=== PATIENT | female | born 1945 | race Caucasian/White ===

== ENCOUNTER 2020-06-05 11:30 | Inpatient (IN) | payer MEDICARE, OTHER ==
[~2020-06-05] VITALS: Ht 157.5 cm; Wt 67.1 kg
[2020-06-05] MEDS ORDERED: DEXTROSE 50%-WATER 25 GM/50 ML SYRINGE IVP PRN (14:00)
[2020-06-05 15:30] VITALS: BP 151/47
[2020-06-05] MEDS: ACETAMINOPHEN 325 MG TABLET PO PRN (15:46)
[2020-06-05] MEDS: LevETIRAcetam 500 MG TABLET PO SCH (15:47)
[2020-06-05] MEDS: INSULIN LISPRO 100 UNITS/ML SQ SCH (17:53)
[2020-06-05] MEDS: INSULIN LISPRO 100 UNITS/ML SQ PRN ×2 (17:54→21:41)
[2020-06-05] MEDS: SEVELAMER CARBONATE 800 MG TABLET PO SCH (17:56)
[2020-06-05 17:59] VITALS: BP 158/51
[2020-06-05] MEDS: HydrALAZINE HCL 25 MG TABLET PO SCH ×2 (18:09→21:00)
[2020-06-05 18:17] LABS: GLUCOMETER DEV NAME(LOC) 2WR.1C; GLUCOSE,POINT OF CARE 229 MG/DL (70-110)
[2020-06-05] MEDS: CARVEDILOL 12.5 MG TABLET PO SCH (21:00)
[2020-06-05] MEDS: INSULIN GLARGINE,HUM.REC.ANLOG 100 UNITS/ML SQ SCH (21:40)
[2020-06-05] MEDS: ATORVASTATIN CALCIUM 40 MG TABLET PO SCH (21:40)
[2020-06-05 21:44] VITALS: BP 131/44
[2020-06-05 22:29] LABS: GLUCOMETER DEV NAME(LOC) 2WR.2B; GLUCOSE,POINT OF CARE 183 MG/DL (70-110)
[2020-06-06] VITALS: BP 138/44
[2020-06-06 05:42] LABS: GLUCOMETER DEV NAME(LOC) 2WR.2B; GLUCOSE,POINT OF CARE 105 MG/DL (70-110)
[2020-06-06] MEDS: INSULIN LISPRO 100 UNITS/ML SQ SCH ×3 (07:00→18:06)
[2020-06-06 07:21] LABS: BASOPHILS % (AUTO) 0.2 % (0.0-2.0); EOSINOPHILS % (AUTO) 3.5 % (1.0-6.0); HEMOGLOBIN 7.3 g/dL (12.0-16.0); LYMPHOCYTES # (AUTO) 0.5 K/uL (1.0-4.8); LYMPHOCYTES % (AUTO) 4.9 % (22.0-44.0); MEAN CORPUSCULAR HEMOGLOBIN 32.9 pg (26.0-34.0); MEAN CORPUSCULAR HGB CONC 33.1 G/dL (31.0-37.0); MEAN CORPUSCULAR VOLUME 100 fL (80-100); MONOCYTES # (AUTO) 0.9 K/uL (0.1-1.0); MONOCYTES % (AUTO) 8.7 % (2.0-9.0); NEUTROPHILS # (AUTO) 8.9 K/uL (1.8-7.7); NEUTROPHILS % (AUTO) 82.7 % (40.0-70.0); PLATELET COUNT (AUTO) 153 K/uL (150-450); RED BLOOD CELL COUNT(AUTO) 2.21 MIL/uL (4.00-5.20)
[2020-06-06 07:52] LABS: ALBUMIN 2.4 g/dL (3.4-5.0); BILIRUBIN,TOTAL 0.6 mg/dL (0.1-1.0); CALCIUM, TOTAL 8.8 mg/dL (8.8-10.5); CREATININE 5.37 mg/dL (0.60-1.30); TOTAL PROTEIN, SERUM 6.2 g/dL (6.4-8.2)
[2020-06-06 07:55] LABS: POTASSIUM 6.1 mmol/L (3.5-5.1)
[2020-06-06] MEDS ORDERED: LACOSAMIDE 100 MG TABLET PO SCH (08:00)
[2020-06-06] MEDS ORDERED: SODIUM POLYSTYRENE SULFONATE 15 GM/60 ML SUSPENSION BOTTLE PO ONE (08:00)
[2020-06-06] MEDS ORDERED: SODIUM ZIRCONIUM CYCLOSILICATE 5 GM POWDER PACKET PO ONE (08:30)
[2020-06-06 08:40] VITALS: BP 166/58
[2020-06-06] MEDS: EPOETIN ALFA 10,000 UNITS/ML VIAL SQ SCH (08:41)
[2020-06-06] MEDS: SEVELAMER CARBONATE 800 MG TABLET PO SCH ×4 (08:41→17:59)
[2020-06-06] MEDS: OMEPRAZOLE 20 MG CAPSULE PO SCH (08:42)
[2020-06-06] MEDS: FEXOFENADINE HCL 60 MG TABLET PO SCH (08:43)
[2020-06-06] MEDS: LevETIRAcetam 500 MG TABLET PO SCH (08:43)
[2020-06-06] MEDS: VITAMIN B COMP/VIT C/FOLIC ACID CAPSULE PO SCH (08:44)
[2020-06-06] MEDS: HydrALAZINE HCL 25 MG TABLET PO SCH ×4 (08:44→20:30)
[2020-06-06] MEDS: LOSARTAN POTASSIUM 50 MG TABLET PO SCH ×2 (08:44→15:44)
[2020-06-06] MEDS: AmLODIPine BESYLATE 5 MG TABLET PO SCH (08:44)
[2020-06-06] MEDS: BACITRACIN 28 GM OINTMENT TP SCH (08:45)
[2020-06-06] MEDS: CARVEDILOL 12.5 MG TABLET PO SCH ×3 (08:48→20:30)
[2020-06-06] MEDS ORDERED: SODIUM CHLORIDE 0.9% 2,000 ML ONE ×2 (09:08→10:20)
[2020-06-06 15:00] VITALS: BP 165/64
[2020-06-06 16:15] LABS: GLUCOMETER DEV NAME(LOC) 2WR.2B; GLUCOSE,POINT OF CARE 115 MG/DL (70-110)
[2020-06-06 19:15] LABS: GLUCOMETER DEV NAME(LOC) 2WR.1C; GLUCOSE,POINT OF CARE 208 MG/DL (70-110)
[2020-06-06 20:17] VITALS: BP 141/59
[2020-06-06] MEDS: ATORVASTATIN CALCIUM 40 MG TABLET PO SCH (20:30)
[2020-06-06] MEDS: INSULIN GLARGINE,HUM.REC.ANLOG 100 UNITS/ML SQ SCH (20:35)
[2020-06-06] MEDS: INSULIN LISPRO 100 UNITS/ML SQ PRN (20:35)
[2020-06-06] MEDS: OXYGEN THERAPY IH SCH (20:36)
[2020-06-07 01:00] VITALS: BP 132/56
[2020-06-07 06:09] LABS: GLUCOMETER DEV NAME(LOC) 2WR.2B; GLUCOSE,POINT OF CARE 98 MG/DL (70-110)
[2020-06-07] MEDS: INSULIN LISPRO 100 UNITS/ML SQ PRN ×3 (06:52→22:06)
[2020-06-07] MEDS: SEVELAMER CARBONATE 800 MG TABLET PO SCH ×3 (07:56→20:39)
[2020-06-07] MEDS: LevETIRAcetam 500 MG TABLET PO SCH (07:56)
[2020-06-07] MEDS: VITAMIN B COMP/VIT C/FOLIC ACID CAPSULE PO SCH (07:56)
[2020-06-07] MEDS: LACOSAMIDE 50 MG TABLET PO SCH (07:56)
[2020-06-07] MEDS: BACITRACIN 28 GM OINTMENT TP SCH (07:57)
[2020-06-07] MEDS: OMEPRAZOLE 20 MG CAPSULE PO SCH (07:57)
[2020-06-07] MEDS: FEXOFENADINE HCL 60 MG TABLET PO SCH (07:57)
[2020-06-07] MEDS: DOCUSATE SODIUM 250 MG CAPSULE PO SCH ×2 (07:57→20:40)
[2020-06-07] MEDS: OXYGEN THERAPY IH SCH ×2 (08:00→20:41)
[2020-06-07 08:01] VITALS: BP 135/52
[2020-06-07] MEDS: INSULIN LISPRO 100 UNITS/ML SQ SCH ×3 (08:01→16:30)
[2020-06-07] MEDS: HydrALAZINE HCL 25 MG TABLET PO SCH ×3 (09:00→20:41)
[2020-06-07] MEDS: CARVEDILOL 12.5 MG TABLET PO SCH ×2 (09:00→20:40)
[2020-06-07] MEDS: AmLODIPine BESYLATE 5 MG TABLET PO SCH (09:00)
[2020-06-07] MEDS: LOSARTAN POTASSIUM 50 MG TABLET PO SCH (09:00)
[2020-06-07] MEDS: ACETAMINOPHEN 325 MG TABLET PO PRN ×2 (09:19→20:39)
[2020-06-07 11:37] LABS: GLUCOMETER DEV NAME(LOC) 2WR.2B; GLUCOSE,POINT OF CARE 160 MG/DL (70-110)
[2020-06-07] MEDS ORDERED: SODIUM CHLORIDE 0.9% 2,000 ML ONE (13:19)
[2020-06-07 15:36] VITALS: BP 130/60
[2020-06-07 20:12] LABS: GLUCOMETER DEV NAME(LOC) 2WR.1C; GLUCOSE,POINT OF CARE 106 MG/DL (70-110)
[2020-06-07 20:32] VITALS: BP 128/69
[2020-06-07] MEDS: ATORVASTATIN CALCIUM 40 MG TABLET PO SCH (20:40)
[2020-06-07] MEDS: SENNA 187 MG TABLET PO SCH (20:40)
[2020-06-07] MEDS: INSULIN GLARGINE,HUM.REC.ANLOG 100 UNITS/ML SQ SCH (22:07)
[2020-06-07 23:12] LABS: GLUCOMETER DEV NAME(LOC) 2WR.2B; GLUCOSE,POINT OF CARE 225 MG/DL (70-110)
[2020-06-08 00:30] VITALS: BP 143/65
[2020-06-08 06:21] LABS: GLUCOMETER DEV NAME(LOC) 2WR.2B; GLUCOSE,POINT OF CARE 92 MG/DL (70-110)
[2020-06-08 08:05] VITALS: BP 171/76
[2020-06-08] MEDS: OMEPRAZOLE 20 MG CAPSULE PO SCH (08:09)
[2020-06-08] MEDS: VITAMIN B COMP/VIT C/FOLIC ACID CAPSULE PO SCH (08:09)
[2020-06-08] MEDS: INSULIN LISPRO 100 UNITS/ML SQ SCH ×3 (08:09→17:32)
[2020-06-08] MEDS: FEXOFENADINE HCL 60 MG TABLET PO SCH (08:09)
[2020-06-08] MEDS: LevETIRAcetam 500 MG TABLET PO SCH (08:10)
[2020-06-08] MEDS: DOCUSATE SODIUM 250 MG CAPSULE PO SCH ×2 (08:10→20:58)
[2020-06-08] MEDS: BACITRACIN 28 GM OINTMENT TP SCH (08:10)
[2020-06-08] MEDS: SEVELAMER CARBONATE 800 MG TABLET PO SCH ×3 (08:10→17:28)
[2020-06-08] MEDS: EPOETIN ALFA 10,000 UNITS/ML VIAL SQ SCH (08:10)
[2020-06-08] MEDS: AmLODIPine BESYLATE 5 MG TABLET PO SCH (08:10)
[2020-06-08] MEDS: LOSARTAN POTASSIUM 50 MG TABLET PO SCH (08:10)
[2020-06-08] MEDS: HydrALAZINE HCL 25 MG TABLET PO SCH ×3 (08:10→20:58)
[2020-06-08] MEDS: LACOSAMIDE 50 MG TABLET PO SCH (08:10)
[2020-06-08] MEDS: CARVEDILOL 12.5 MG TABLET PO SCH ×2 (08:10→20:59)
[2020-06-08] MEDS: OXYGEN THERAPY IH SCH ×2 (08:13→20:58)
[2020-06-08] MEDS ORDERED: SOD FERRIC GLUC COMPLX/SUCROSE 125 MG in SODIUM CHLORIDE 0.9% 100 ML IV SCH (09:30)
[2020-06-08] MEDS: ACETAMINOPHEN 325 MG TABLET PO PRN ×2 (12:22→17:33)
[2020-06-08 16:32] VITALS: BP 131/48
[2020-06-08] MEDS: INSULIN LISPRO 100 UNITS/ML SQ PRN (17:33)
[2020-06-08] MEDS: ATORVASTATIN CALCIUM 40 MG TABLET PO SCH (20:58)
[2020-06-08] MEDS: SENNA 187 MG TABLET PO SCH (20:58)
[2020-06-08] MEDS: INSULIN GLARGINE,HUM.REC.ANLOG 100 UNITS/ML SQ SCH (21:00)
[2020-06-08 21:12] VITALS: BP 152/56
[2020-06-08 22:00] LABS: GLUCOMETER DEV NAME(LOC) 2WR.2B; GLUCOSE,POINT OF CARE 77 MG/DL (70-110)
[2020-06-09] VITALS (8 sets, daily range): BP systolic 142–191; BP diastolic 50–72
[2020-06-09 02:18] LABS: GLUCOMETER DEV NAME(LOC) 2WR.1C; GLUCOSE,POINT OF CARE 132 MG/DL (70-110)
[2020-06-09 02:18] LABS: GLUCOMETER DEV NAME(LOC) 2WR.1C; GLUCOSE,POINT OF CARE 200 MG/DL (70-110)
[2020-06-09] MEDS ORDERED: INSLAN SQ (05:16)
[2020-06-09] MEDS ORDERED: CARV12 PO (05:16)
[2020-06-09] MEDS ORDERED: MINO2.5 PO (05:16)
[2020-06-09] MEDS ORDERED: AMLO-258 PO (05:16)
[2020-06-09] MEDS ORDERED: INSNOV SQ (05:16)
[2020-06-09] MEDS ORDERED: ASPI-728 PO (05:16)
[2020-06-09] MEDS ORDERED: FOLI0.8T2 PO (05:16)
[2020-06-09] MEDS ORDERED: ATOR40TA28 PO (05:16)
[2020-06-09] MEDS ORDERED: FEXO180T94 PO (05:16)
[2020-06-09] MEDS ORDERED: SEVE800T17 PO (05:16)
[2020-06-09] MEDS ORDERED: LOSA25TA21 PO (05:16)
[2020-06-09] MEDS ORDERED: VITA1CAP20 PO (05:16)
[2020-06-09] MEDS ORDERED: BUME1TAB34 PO (05:16)
[2020-06-09] MEDS ORDERED: HYDR25TA84 PO (05:16)
[2020-06-09] MEDS ORDERED: OMEG-112 PO (05:16)
[2020-06-09] MEDS ORDERED: OMEP20 PO (05:16)
[2020-06-09 06:09] LABS: GLUCOMETER DEV NAME(LOC) 2WR.1C; GLUCOSE,POINT OF CARE 140 MG/DL (70-110)
[2020-06-09] MEDS: BACITRACIN 28 GM OINTMENT TP SCH (07:32)
[2020-06-09] MEDS: LACOSAMIDE 50 MG TABLET PO SCH (07:32)
[2020-06-09] MEDS: OXYGEN THERAPY IH SCH ×2 (07:33→21:51)
[2020-06-09 08:14] LABS: CALCIUM, TOTAL 8.6 mg/dL (8.8-10.5); CREATININE 4.76 mg/dL (0.60-1.30); PHOSPHORUS 3.4 mg/dL (2.5-4.9); POTASSIUM 4.8 mmol/L (3.5-5.1)
[2020-06-09 08:27] LABS: BASOPHILS % (AUTO) 0.3 % (0.0-2.0); EOSINOPHILS % (AUTO) 4.6 % (1.0-6.0); LYMPHOCYTES # (AUTO) 0.5 K/uL (1.0-4.8); LYMPHOCYTES % (AUTO) 7.6 % (22.0-44.0); MEAN CORPUSCULAR HEMOGLOBIN 32.6 pg (26.0-34.0); MEAN CORPUSCULAR VOLUME 99 fL (80-100); MONOCYTES # (AUTO) 0.6 K/uL (0.1-1.0); MONOCYTES % (AUTO) 9.2 % (2.0-9.0); NEUTROPHILS # (AUTO) 5.5 K/uL (1.8-7.7); NEUTROPHILS % (AUTO) 78.3 % (40.0-70.0); PLATELET COUNT (AUTO) 148 K/uL (150-450); RED BLOOD CELL COUNT(AUTO) 2.04 MIL/uL (4.00-5.20); RED CELL DISTRIBUTION WIDTH 17.1 % (11.5-14.5)
[2020-06-09 08:32] LABS: HEMOGLOBIN 6.7 g/dL (12.0-16.0)
[2020-06-09 08:33] LABS: HEMATOCRIT 20.2 % (36-46)
[2020-06-09] MEDS: SOD FERRIC GLUC COMPLX/SUCROSE 125 MG in SODIUM CHLORIDE 0.9% 100 ML IV SCH (09:00)
[2020-06-09] MEDS: AmLODIPine BESYLATE 5 MG TABLET PO SCH (09:00)
[2020-06-09] MEDS: LOSARTAN POTASSIUM 50 MG TABLET PO SCH (09:00)
[2020-06-09] MEDS: CARVEDILOL 12.5 MG TABLET PO SCH ×2 (09:00→21:50)
[2020-06-09] MEDS: HydrALAZINE HCL 25 MG TABLET PO SCH ×3 (09:00→21:50)
[2020-06-09] MEDS: SEVELAMER CARBONATE 800 MG TABLET PO SCH ×3 (09:33→22:04)
[2020-06-09] MEDS: LevETIRAcetam 500 MG TABLET PO SCH (09:34)
[2020-06-09] MEDS: DOCUSATE SODIUM 250 MG CAPSULE PO SCH ×2 (09:34→21:50)
[2020-06-09] MEDS: OMEPRAZOLE 20 MG CAPSULE PO SCH (09:34)
[2020-06-09] MEDS: FEXOFENADINE HCL 60 MG TABLET PO SCH (09:34)
[2020-06-09] MEDS: VITAMIN B COMP/VIT C/FOLIC ACID CAPSULE PO SCH (09:34)
[2020-06-09 11:00] LABS: GLUCOMETER DEV NAME(LOC) 2WR.2B; GLUCOSE,POINT OF CARE 238 MG/DL (70-110)
[2020-06-09] MEDS: INSULIN LISPRO 100 UNITS/ML SQ SCH ×3 (11:01→16:45)
[2020-06-09] MEDS: INSULIN LISPRO 100 UNITS/ML SQ PRN ×2 (11:02→14:31)
[2020-06-09] MEDS: ACETAMINOPHEN 325 MG TABLET PO PRN ×2 (13:34→22:40)
[2020-06-09 15:27] LABS: GLUCOMETER DEV NAME(LOC) 2WR.1C; GLUCOSE,POINT OF CARE 250 MG/DL (70-110)
[2020-06-09] MEDS ORDERED: SODIUM CHLORIDE 0.9% 1,000 ML ONE ×2 (15:30)
[2020-06-09 17:12] LABS: GLUCOMETER DEV NAME(LOC) 2WR.2B; GLUCOSE,POINT OF CARE 216 MG/DL (70-110)
[2020-06-09] MEDS: ATORVASTATIN CALCIUM 40 MG TABLET PO SCH (21:50)
[2020-06-09] MEDS: SENNA 187 MG TABLET PO SCH (21:50)
[2020-06-09] MEDS: INSULIN GLARGINE,HUM.REC.ANLOG 100 UNITS/ML SQ SCH (22:05)
[2020-06-09 23:32] LABS: GLUCOMETER DEV NAME(LOC) 2WR.2B; GLUCOSE,POINT OF CARE 134 MG/DL (70-110)
[2020-06-10] VITALS: BP 154/69
[2020-06-10 05:49] LABS: GLUCOMETER DEV NAME(LOC) 2WR.2B; GLUCOSE,POINT OF CARE 138 MG/DL (70-110)
[2020-06-10 06:12] VITALS: BP 139/66
[2020-06-10 08:00] VITALS: BP 140/49
[2020-06-10] MEDS: OMEPRAZOLE 20 MG CAPSULE PO SCH (08:50)
[2020-06-10] MEDS: DOCUSATE SODIUM 250 MG CAPSULE PO SCH ×2 (08:50→20:47)
[2020-06-10] MEDS: HydrALAZINE HCL 25 MG TABLET PO SCH ×3 (08:51→20:48)
[2020-06-10] MEDS: LACOSAMIDE 50 MG TABLET PO SCH (08:51)
[2020-06-10] MEDS: FEXOFENADINE HCL 60 MG TABLET PO SCH (08:51)
[2020-06-10] MEDS: VITAMIN B COMP/VIT C/FOLIC ACID CAPSULE PO SCH (08:51)
[2020-06-10] MEDS: SEVELAMER CARBONATE 800 MG TABLET PO SCH ×3 (08:51→17:27)
[2020-06-10] MEDS: LOSARTAN POTASSIUM 50 MG TABLET PO SCH (08:51)
[2020-06-10] MEDS: LevETIRAcetam 500 MG TABLET PO SCH (08:51)
[2020-06-10] MEDS: CARVEDILOL 12.5 MG TABLET PO SCH ×2 (08:51→21:00)
[2020-06-10] MEDS: BACITRACIN 28 GM OINTMENT TP SCH (08:52)
[2020-06-10] MEDS: INSULIN LISPRO 100 UNITS/ML SQ SCH ×3 (08:52→17:31)
[2020-06-10] MEDS: AmLODIPine BESYLATE 5 MG TABLET PO SCH (08:56)
[2020-06-10] MEDS: OXYGEN THERAPY IH SCH ×2 (08:59→20:46)
[2020-06-10] MEDS ORDERED: DEXTROSE 40% LEMON 37.5 GM/TUBE GEL [15 GM GLUCOSE] PO PRN (12:00)
[2020-06-10 12:29] LABS: GLUCOMETER DEV NAME(LOC) 2WR.2B; GLUCOSE,POINT OF CARE 61 MG/DL (70-110)
[2020-06-10 12:30] LABS: GLUCOMETER DEV NAME(LOC) 2WR.2B; GLUCOSE,POINT OF CARE 74 MG/DL (70-110)
[2020-06-10 12:52] LABS: GLUCOMETER DEV NAME(LOC) 2WR.2B; GLUCOSE,POINT OF CARE 85 MG/DL (70-110)
[2020-06-10 16:25] VITALS: BP 189/84
[2020-06-10 20:45] VITALS: BP 148/55
[2020-06-10] MEDS: ATORVASTATIN CALCIUM 40 MG TABLET PO SCH (20:47)
[2020-06-10] MEDS: INSULIN GLARGINE,HUM.REC.ANLOG 100 UNITS/ML SQ SCH (20:47)
[2020-06-10] MEDS: SENNA 187 MG TABLET PO SCH (20:47)
[2020-06-10] MEDS: ACETAMINOPHEN 325 MG TABLET PO PRN (20:49)
[2020-06-10 21:24] LABS: GLUCOMETER DEV NAME(LOC) 2WR.1C; GLUCOSE,POINT OF CARE 230 MG/DL (70-110)
[2020-06-10 21:24] LABS: GLUCOMETER DEV NAME(LOC) 2WR.1C; GLUCOSE,POINT OF CARE 179 MG/DL (70-110)
[2020-06-11 00:14] VITALS: BP 136/59
[2020-06-11 06:20] LABS: GLUCOMETER DEV NAME(LOC) 2WR.2B; GLUCOSE,POINT OF CARE 70 MG/DL (70-110)
[2020-06-11 06:46] LABS: BASOPHILS % (AUTO) 0.4 % (0.0-2.0); HEMATOCRIT 21.9 % (36-46); HEMOGLOBIN 7.5 g/dL (12.0-16.0); LYMPHOCYTES # (AUTO) 0.8 K/uL (1.0-4.8); LYMPHOCYTES % (AUTO) 11.8 % (22.0-44.0); MEAN CORPUSCULAR HEMOGLOBIN 32.5 pg (26.0-34.0); MEAN CORPUSCULAR HGB CONC 34.4 G/dL (31.0-37.0); MEAN CORPUSCULAR VOLUME 95 fL (80-100); MONOCYTES # (AUTO) 0.7 K/uL (0.1-1.0); MONOCYTES % (AUTO) 10.5 % (2.0-9.0); NEUTROPHILS # (AUTO) 4.6 K/uL (1.8-7.7); NEUTROPHILS % (AUTO) 71.3 % (40.0-70.0); PLATELET COUNT (AUTO) 139 K/uL (150-450); RED BLOOD CELL COUNT(AUTO) 2.31 MIL/uL (4.00-5.20); RED CELL DISTRIBUTION WIDTH 18.5 % (11.5-14.5)
[2020-06-11 06:59] LABS: CALCIUM, TOTAL 8.3 mg/dL (8.8-10.5); CREATININE 4.9 mg/dL (0.60-1.30); PHOSPHORUS 3.2 mg/dL (2.5-4.9); POTASSIUM 4.5 mmol/L (3.5-5.1)
[2020-06-11] MEDS: INSULIN LISPRO 100 UNITS/ML SQ SCH ×3 (07:00→18:02)
[2020-06-11 08:04] VITALS: BP 131/56
[2020-06-11] MEDS: OMEPRAZOLE 20 MG CAPSULE PO SCH (08:27)
[2020-06-11] MEDS: FEXOFENADINE HCL 60 MG TABLET PO SCH (08:27)
[2020-06-11] MEDS: LACOSAMIDE 50 MG TABLET PO SCH (08:28)
[2020-06-11] MEDS: LOSARTAN POTASSIUM 50 MG TABLET PO SCH (08:28)
[2020-06-11] MEDS: SEVELAMER CARBONATE 800 MG TABLET PO SCH ×3 (08:28→17:49)
[2020-06-11] MEDS: LevETIRAcetam 500 MG TABLET PO SCH (08:28)
[2020-06-11] MEDS: CARVEDILOL 12.5 MG TABLET PO SCH ×2 (08:28→21:02)
[2020-06-11] MEDS: DOCUSATE SODIUM 250 MG CAPSULE PO SCH ×2 (08:28→21:02)
[2020-06-11] MEDS: HydrALAZINE HCL 25 MG TABLET PO SCH ×3 (08:28→21:00)
[2020-06-11] MEDS: VITAMIN B COMP/VIT C/FOLIC ACID CAPSULE PO SCH (08:28)
[2020-06-11] MEDS: AmLODIPine BESYLATE 5 MG TABLET PO SCH (08:28)
[2020-06-11] MEDS: BACITRACIN 28 GM OINTMENT TP SCH (08:29)
[2020-06-11] MEDS: EPOETIN ALFA 10,000 UNITS/ML VIAL SQ SCH (08:30)
[2020-06-11] MEDS: OXYGEN THERAPY IH SCH ×2 (08:35→19:18)
[2020-06-11] MEDS: INSULIN LISPRO 100 UNITS/ML SQ PRN (12:30)
[2020-06-11] MEDS ORDERED: LOSA50TA37 PO (13:51)
[2020-06-11] MEDS: ACETAMINOPHEN 325 MG TABLET PO PRN ×2 (14:09→23:48)
[2020-06-11] MEDS: ISOSORBIDE MONONITRATE 60 MG ER TABLET PO SCH (15:26)
[2020-06-11 18:14] VITALS: BP 154/52
[2020-06-11 18:34] LABS: GLUCOMETER DEV NAME(LOC) 2WR.2B; GLUCOSE,POINT OF CARE 111 MG/DL (70-110)
[2020-06-11 21:00] VITALS: BP 125/46
[2020-06-11] MEDS: ATORVASTATIN CALCIUM 40 MG TABLET PO SCH (21:02)
[2020-06-11] MEDS: SENNA 187 MG TABLET PO SCH (21:02)
[2020-06-11] MEDS: INSULIN GLARGINE,HUM.REC.ANLOG 100 UNITS/ML SQ SCH (21:09)
[2020-06-11 22:21] LABS: GLUCOMETER DEV NAME(LOC) 2WR.1C; GLUCOSE,POINT OF CARE 180 MG/DL (70-110)
[2020-06-11 22:21] LABS: GLUCOMETER DEV NAME(LOC) 2WR.1C; GLUCOSE,POINT OF CARE 110 MG/DL (70-110)
[2020-06-11 23:48] VITALS: BP 156/66
[2020-06-12 06:32] LABS: GLUCOMETER DEV NAME(LOC) 2WR.2B; GLUCOSE,POINT OF CARE 102 MG/DL (70-110)
[2020-06-12 08:15] VITALS: BP 176/80
[2020-06-12] MEDS: LevETIRAcetam 500 MG TABLET PO SCH (08:16)
[2020-06-12] MEDS: OMEPRAZOLE 20 MG CAPSULE PO SCH (08:16)
[2020-06-12] MEDS: VITAMIN B COMP/VIT C/FOLIC ACID CAPSULE PO SCH (08:16)
[2020-06-12] MEDS: INSULIN LISPRO 100 UNITS/ML SQ SCH ×3 (08:18→16:30)
[2020-06-12] MEDS: FEXOFENADINE HCL 60 MG TABLET PO SCH (08:19)
[2020-06-12] MEDS: BACITRACIN 28 GM OINTMENT TP SCH (08:19)
[2020-06-12] MEDS: ACETAMINOPHEN 325 MG TABLET PO PRN (08:19)
[2020-06-12] MEDS: SEVELAMER CARBONATE 800 MG TABLET PO SCH ×3 (08:19→20:08)
[2020-06-12] MEDS: DOCUSATE SODIUM 250 MG CAPSULE PO SCH ×2 (08:19→20:19)
[2020-06-12] MEDS: HydrALAZINE HCL 25 MG TABLET PO SCH ×3 (08:19→21:00)
[2020-06-12] MEDS: SOD FERRIC GLUC COMPLX/SUCROSE 125 MG in SODIUM CHLORIDE 0.9% 100 ML IV SCH (08:21)
[2020-06-12] MEDS: OXYGEN THERAPY IH SCH ×2 (08:30→20:20)
[2020-06-12] MEDS: AmLODIPine BESYLATE 5 MG TABLET PO SCH (08:31)
[2020-06-12] MEDS: CARVEDILOL 12.5 MG TABLET PO SCH ×2 (08:31→20:19)
[2020-06-12] MEDS: LOSARTAN POTASSIUM 50 MG TABLET PO SCH (08:31)
[2020-06-12] MEDS: ISOSORBIDE MONONITRATE 60 MG ER TABLET PO SCH (08:31)
[2020-06-12 09:15] VITALS: BP 154/74
[2020-06-12] MEDS ORDERED: ONDANSETRON HCL 4 MG TABLET PO PRN (09:15)
[2020-06-12] MEDS ORDERED: SODIUM CHLORIDE 0.9% 2,000 ML ONE (10:08)
[2020-06-12] MEDS: INSULIN LISPRO 100 UNITS/ML SQ PRN (12:32)
[2020-06-12] MEDS: LACOSAMIDE 50 MG TABLET PO SCH (14:32)
[2020-06-12 14:50] VITALS: BP 169/65
[2020-06-12 16:07] LABS: GLUCOMETER DEV NAME(LOC) 2WR.1C; GLUCOSE,POINT OF CARE 192 MG/DL (70-110)
[2020-06-12] MEDS: SENNA 187 MG TABLET PO SCH (20:19)
[2020-06-12] MEDS: ATORVASTATIN CALCIUM 40 MG TABLET PO SCH (20:19)
[2020-06-12 20:24] VITALS: BP 193/99
[2020-06-12 21:10] LABS: GLUCOMETER DEV NAME(LOC) 2WR.1C; GLUCOSE,POINT OF CARE 95 MG/DL (70-110)
[2020-06-12] MEDS: INSULIN GLARGINE,HUM.REC.ANLOG 100 UNITS/ML SQ SCH (22:33)
[2020-06-12] MEDS: MELATONIN 3 MG TABLET PO PRN (22:35)
[2020-06-12 22:39] VITALS: BP 158/46
[2020-06-12 23:00] LABS: GLUCOMETER DEV NAME(LOC) 2WR.1C; GLUCOSE,POINT OF CARE 135 MG/DL (70-110)
[2020-06-13 00:37] VITALS: BP 156/58
[2020-06-13] MEDS: ACETAMINOPHEN 325 MG TABLET PO PRN ×3 (00:37→18:47)
[2020-06-13 06:20] LABS: GLUCOMETER DEV NAME(LOC) 2WR.2B; GLUCOSE,POINT OF CARE 84 MG/DL (70-110)
[2020-06-13] MEDS: LACOSAMIDE 50 MG TABLET PO SCH (07:41)
[2020-06-13] MEDS: SEVELAMER CARBONATE 800 MG TABLET PO SCH ×3 (07:41→17:48)
[2020-06-13] MEDS: INSULIN LISPRO 100 UNITS/ML SQ SCH ×3 (07:46→17:51)
[2020-06-13 08:43] VITALS: BP 165/84
[2020-06-13] MEDS: OXYGEN THERAPY IH SCH ×2 (08:50→18:47)
[2020-06-13] MEDS: LOSARTAN POTASSIUM 50 MG TABLET PO SCH (08:51)
[2020-06-13] MEDS: FEXOFENADINE HCL 60 MG TABLET PO SCH (08:51)
[2020-06-13] MEDS: DOCUSATE SODIUM 250 MG CAPSULE PO SCH ×2 (08:51→21:27)
[2020-06-13] MEDS: ISOSORBIDE MONONITRATE 60 MG ER TABLET PO SCH (08:52)
[2020-06-13] MEDS: LevETIRAcetam 500 MG TABLET PO SCH (08:52)
[2020-06-13] MEDS: AmLODIPine BESYLATE 5 MG TABLET PO SCH (08:52)
[2020-06-13] MEDS: OMEPRAZOLE 20 MG CAPSULE PO SCH (08:52)
[2020-06-13] MEDS: CARVEDILOL 12.5 MG TABLET PO SCH ×2 (08:52→21:27)
[2020-06-13] MEDS: HydrALAZINE HCL 25 MG TABLET PO SCH ×3 (08:52→21:27)
[2020-06-13] MEDS: VITAMIN B COMP/VIT C/FOLIC ACID CAPSULE PO SCH (08:52)
[2020-06-13] MEDS: EPOETIN ALFA 10,000 UNITS/ML VIAL SQ SCH (08:52)
[2020-06-13] MEDS: BACITRACIN 28 GM OINTMENT TP SCH (08:53)
[2020-06-13 09:51] VITALS: BP 146/72
[2020-06-13] MEDS: INSULIN LISPRO 100 UNITS/ML SQ PRN (12:40)
[2020-06-13 15:30] VITALS: BP 153/54
[2020-06-13 18:18] LABS: GLUCOMETER DEV NAME(LOC) 2WR.1C; GLUCOSE,POINT OF CARE 125 MG/DL (70-110)
[2020-06-13 18:18] LABS: GLUCOMETER DEV NAME(LOC) 2WR.1C; GLUCOSE,POINT OF CARE 201 MG/DL (70-110)
[2020-06-13 21:21] VITALS: BP 148/52
[2020-06-13] MEDS: ATORVASTATIN CALCIUM 40 MG TABLET PO SCH (21:27)
[2020-06-13] MEDS: MELATONIN 3 MG TABLET PO PRN (21:29)
[2020-06-13] MEDS: INSULIN GLARGINE,HUM.REC.ANLOG 100 UNITS/ML SQ SCH (21:30)
[2020-06-13] MEDS: SENNA 187 MG TABLET PO SCH (21:34)
[2020-06-13 22:06] LABS: GLUCOMETER DEV NAME(LOC) 2WR.2B; GLUCOSE,POINT OF CARE 112 MG/DL (70-110)
[2020-06-14] VITALS: BP 125/47
[2020-06-14 05:49] LABS: GLUCOMETER DEV NAME(LOC) 2WR.1C; GLUCOSE,POINT OF CARE 92 MG/DL (70-110)
[2020-06-14] MEDS: INSULIN LISPRO 100 UNITS/ML SQ SCH ×3 (07:00→17:33)
[2020-06-14 08:50] VITALS: BP 131/60
[2020-06-14] MEDS: LACOSAMIDE 50 MG TABLET PO SCH (08:54)
[2020-06-14] MEDS: SEVELAMER CARBONATE 800 MG TABLET PO SCH ×3 (08:55→17:31)
[2020-06-14] MEDS: LevETIRAcetam 500 MG TABLET PO SCH (08:55)
[2020-06-14] MEDS: VITAMIN B COMP/VIT C/FOLIC ACID CAPSULE PO SCH (08:55)
[2020-06-14] MEDS: DOCUSATE SODIUM 250 MG CAPSULE PO SCH ×2 (08:56→21:13)
[2020-06-14] MEDS: FEXOFENADINE HCL 60 MG TABLET PO SCH (08:57)
[2020-06-14] MEDS: BACITRACIN 28 GM OINTMENT TP SCH (08:58)
[2020-06-14] MEDS: OMEPRAZOLE 20 MG CAPSULE PO SCH (08:58)
[2020-06-14] MEDS: HydrALAZINE HCL 25 MG TABLET PO SCH ×3 (09:00→21:00)
[2020-06-14] MEDS: CARVEDILOL 12.5 MG TABLET PO SCH ×2 (09:00→21:00)
[2020-06-14] MEDS: LOSARTAN POTASSIUM 50 MG TABLET PO SCH (09:00)
[2020-06-14] MEDS: AmLODIPine BESYLATE 5 MG TABLET PO SCH (09:00)
[2020-06-14] MEDS: ISOSORBIDE MONONITRATE 60 MG ER TABLET PO SCH (09:00)
[2020-06-14] MEDS: ACETAMINOPHEN 325 MG TABLET PO PRN (09:14)
[2020-06-14] MEDS: OXYGEN THERAPY IH SCH ×2 (09:15→21:23)
[2020-06-14] MEDS: INSULIN LISPRO 100 UNITS/ML SQ PRN ×2 (12:41→17:34)
[2020-06-14 15:36] LABS: GLUCOMETER DEV NAME(LOC) 2WR.2B; GLUCOSE,POINT OF CARE 247 MG/DL (70-110)
[2020-06-14 16:11] VITALS: BP 160/72
[2020-06-14 17:48] LABS: GLUCOMETER DEV NAME(LOC) 2WR.2B; GLUCOSE,POINT OF CARE 143 MG/DL (70-110)
[2020-06-14] MEDS: SENNA 187 MG TABLET PO SCH (21:13)
[2020-06-14] MEDS: ATORVASTATIN CALCIUM 40 MG TABLET PO SCH (21:13)
[2020-06-14] MEDS: INSULIN GLARGINE,HUM.REC.ANLOG 100 UNITS/ML SQ SCH (21:15)
[2020-06-14] MEDS: MELATONIN 3 MG TABLET PO PRN (21:22)
[2020-06-14] MEDS ORDERED: SODIUM CHLORIDE 0.9% 1,000 ML ONE (21:24)
[2020-06-14] MEDS: SOD FERRIC GLUC COMPLX/SUCROSE 125 MG in SODIUM CHLORIDE 0.9% 100 ML IV SCH (21:26)
[2020-06-14 22:32] LABS: GLUCOMETER DEV NAME(LOC) 2WR.2B; GLUCOSE,POINT OF CARE 102 MG/DL (70-110)
[2020-06-15] VITALS: BP 167/65
[2020-06-15 05:55] VITALS: BP 153/67
[2020-06-15 06:07] LABS: GLUCOMETER DEV NAME(LOC) 2WR.2B; GLUCOSE,POINT OF CARE 78 MG/DL (70-110)
[2020-06-15 06:37] LABS: BASOPHILS % (AUTO) 0.5 % (0.0-2.0); EOSINOPHILS % (AUTO) 6.6 % (1.0-6.0); HEMATOCRIT 22.7 % (36-46); HEMOGLOBIN 7.6 g/dL (12.0-16.0); LYMPHOCYTES # (AUTO) 0.7 K/uL (1.0-4.8); LYMPHOCYTES % (AUTO) 12.7 % (22.0-44.0); MEAN CORPUSCULAR HEMOGLOBIN 32.1 pg (26.0-34.0); MEAN CORPUSCULAR HGB CONC 33.3 G/dL (31.0-37.0); MEAN CORPUSCULAR VOLUME 96 fL (80-100); MONOCYTES # (AUTO) 0.6 K/uL (0.1-1.0); MONOCYTES % (AUTO) 11.5 % (2.0-9.0); NEUTROPHILS # (AUTO) 3.7 K/uL (1.8-7.7); NEUTROPHILS % (AUTO) 68.7 % (40.0-70.0); PLATELET COUNT (AUTO) 150 K/uL (150-450); RED BLOOD CELL COUNT(AUTO) 2.35 MIL/uL (4.00-5.20); RED CELL DISTRIBUTION WIDTH 19.4 % (11.5-14.5)
[2020-06-15 06:52] LABS: CALCIUM, TOTAL 8.8 mg/dL (8.8-10.5); CREATININE 4.19 mg/dL (0.60-1.30); MAGNESIUM 2.1 mg/dL (1.80-2.40); PHOSPHORUS 2.4 mg/dL (2.5-4.9); POTASSIUM 5.2 mmol/L (3.5-5.1)
[2020-06-15] MEDS: INSULIN LISPRO 100 UNITS/ML SQ SCH ×3 (07:00→17:45)
[2020-06-15 07:15] VITALS: BP 158/76
[2020-06-15] MEDS: DOCUSATE SODIUM 250 MG CAPSULE PO SCH ×2 (07:33→21:19)
[2020-06-15] MEDS: LACOSAMIDE 50 MG TABLET PO SCH (07:33)
[2020-06-15] MEDS: LevETIRAcetam 500 MG TABLET PO SCH (07:34)
[2020-06-15] MEDS: LOSARTAN POTASSIUM 50 MG TABLET PO SCH (07:34)
[2020-06-15] MEDS: AmLODIPine BESYLATE 5 MG TABLET PO SCH ×2 (07:34→21:37)
[2020-06-15] MEDS: VITAMIN B COMP/VIT C/FOLIC ACID CAPSULE PO SCH (07:34)
[2020-06-15] MEDS: SEVELAMER CARBONATE 800 MG TABLET PO SCH (07:34)
[2020-06-15] MEDS: HydrALAZINE HCL 25 MG TABLET PO SCH ×3 (07:34→21:38)
[2020-06-15] MEDS: CARVEDILOL 12.5 MG TABLET PO SCH ×2 (07:34→21:38)
[2020-06-15] MEDS: FEXOFENADINE HCL 60 MG TABLET PO SCH (07:35)
[2020-06-15] MEDS: ISOSORBIDE MONONITRATE 60 MG ER TABLET PO SCH (07:35)
[2020-06-15] MEDS: OMEPRAZOLE 20 MG CAPSULE PO SCH (07:35)
[2020-06-15] MEDS: BACITRACIN 28 GM OINTMENT TP SCH (07:35)
[2020-06-15] MEDS: OXYGEN THERAPY IH SCH ×2 (07:36→21:41)
[2020-06-15] MEDS: EPOETIN ALFA 10,000 UNITS/ML VIAL SQ SCH (07:42)
[2020-06-15] MEDS: INSULIN LISPRO 100 UNITS/ML SQ PRN ×2 (12:33→17:45)
[2020-06-15 12:41] LABS: GLUCOMETER DEV NAME(LOC) 2WR.2B; GLUCOSE,POINT OF CARE 223 MG/DL (70-110)
[2020-06-15 16:00] VITALS: BP 116/62
[2020-06-15 19:30] LABS: GLUCOMETER DEV NAME(LOC) 2WR.2B; GLUCOSE,POINT OF CARE 274 MG/DL (70-110)
[2020-06-15] MEDS: SENNA 187 MG TABLET PO SCH (21:19)
[2020-06-15] MEDS: ATORVASTATIN CALCIUM 40 MG TABLET PO SCH (21:19)
[2020-06-15] MEDS: MELATONIN 3 MG TABLET PO PRN (21:19)
[2020-06-15] MEDS: INSULIN GLARGINE,HUM.REC.ANLOG 100 UNITS/ML SQ SCH (21:29)
[2020-06-15 21:36] VITALS: BP 156/68
[2020-06-15 22:05] LABS: GLUCOMETER DEV NAME(LOC) 2WR.2B; GLUCOSE,POINT OF CARE 118 MG/DL (70-110)
[2020-06-16 00:04] VITALS: BP 143/56
[2020-06-16] MEDS: ACETAMINOPHEN 325 MG TABLET PO PRN ×3 (00:04→21:33)
[2020-06-16] MEDS: GuaiFENesin [SUGAR-FREE] 200 MG/10 ML SOLUTION UDCUP PO PRN ×4 (05:01→23:34)
[2020-06-16 05:51] LABS: GLUCOMETER DEV NAME(LOC) 2WR.2B; GLUCOSE,POINT OF CARE 101 MG/DL (70-110)
[2020-06-16] MEDS: INSULIN LISPRO 100 UNITS/ML SQ SCH ×4 (07:00→16:30)
[2020-06-16 08:33] VITALS: BP 129/98
[2020-06-16] MEDS: DOCUSATE SODIUM 250 MG CAPSULE PO SCH ×2 (08:33→20:44)
[2020-06-16] MEDS: LACOSAMIDE 50 MG TABLET PO SCH (08:33)
[2020-06-16] MEDS: LevETIRAcetam 500 MG TABLET PO SCH (08:34)
[2020-06-16] MEDS: OMEPRAZOLE 20 MG CAPSULE PO SCH (08:35)
[2020-06-16] MEDS: BACITRACIN 28 GM OINTMENT TP SCH (08:35)
[2020-06-16] MEDS: OXYGEN THERAPY IH SCH ×2 (08:36→20:50)
[2020-06-16] MEDS: FEXOFENADINE HCL 60 MG TABLET PO SCH (08:36)
[2020-06-16] MEDS: LOSARTAN POTASSIUM 50 MG TABLET PO SCH (08:40)
[2020-06-16] MEDS: CARVEDILOL 12.5 MG TABLET PO SCH ×2 (08:40→20:49)
[2020-06-16] MEDS: VITAMIN B COMP/VIT C/FOLIC ACID CAPSULE PO SCH (08:41)
[2020-06-16] MEDS: AmLODIPine BESYLATE 5 MG TABLET PO SCH ×2 (08:41→20:49)
[2020-06-16] MEDS: ISOSORBIDE MONONITRATE 60 MG ER TABLET PO SCH (08:42)
[2020-06-16] MEDS: HydrALAZINE HCL 25 MG TABLET PO SCH ×3 (08:43→20:49)
[2020-06-16] MEDS: INSULIN LISPRO 100 UNITS/ML SQ PRN ×3 (12:03→20:54)
[2020-06-16 12:30] LABS: GLUCOMETER DEV NAME(LOC) 2WR.2B; GLUCOSE,POINT OF CARE 264 MG/DL (70-110)
[2020-06-16 13:19] LABS: COVID AG,FIA SOURCE NASAL SWAB
[2020-06-16] MEDS: SOD FERRIC GLUC COMPLX/SUCROSE 125 MG in SODIUM CHLORIDE 0.9% 100 ML IV SCH (15:17)
[2020-06-16] MEDS ORDERED: SODIUM CHLORIDE 0.9% 2,000 ML ONE (15:22)
[2020-06-16 16:02] VITALS: BP 163/60
[2020-06-16] MEDS: SENNA 187 MG TABLET PO SCH (20:44)
[2020-06-16] MEDS: ATORVASTATIN CALCIUM 40 MG TABLET PO SCH (20:49)
[2020-06-16 20:53] LABS: GLUCOMETER DEV NAME(LOC) 2WR.1C; GLUCOSE,POINT OF CARE 144 MG/DL (70-110)
[2020-06-16 20:53] LABS: GLUCOMETER DEV NAME(LOC) 2WR.1C; GLUCOSE,POINT OF CARE 135 MG/DL (70-110)
[2020-06-16] MEDS: INSULIN GLARGINE,HUM.REC.ANLOG 100 UNITS/ML SQ SCH (20:54)
[2020-06-16] MEDS: MELATONIN 3 MG TABLET PO PRN (20:55)
[2020-06-16 21:01] VITALS: BP 155/112
[2020-06-16 23:34] VITALS: BP 149/60
[2020-06-17] MEDS: GuaiFENesin [SUGAR-FREE] 200 MG/10 ML SOLUTION UDCUP PO PRN ×3 (04:48→21:20)
[2020-06-17 05:59] LABS: GLUCOMETER DEV NAME(LOC) 2WR.2B; GLUCOSE,POINT OF CARE 112 MG/DL (70-110)
[2020-06-17] MEDS: FEXOFENADINE HCL 60 MG TABLET PO SCH (07:49)
[2020-06-17] MEDS: LOSARTAN POTASSIUM 50 MG TABLET PO SCH (07:49)
[2020-06-17] MEDS: ISOSORBIDE MONONITRATE 60 MG ER TABLET PO SCH (07:49)
[2020-06-17] MEDS: VITAMIN B COMP/VIT C/FOLIC ACID CAPSULE PO SCH (07:49)
[2020-06-17] MEDS: OMEPRAZOLE 20 MG CAPSULE PO SCH (07:49)
[2020-06-17] MEDS: LevETIRAcetam 500 MG TABLET PO SCH (07:49)
[2020-06-17] MEDS: HydrALAZINE HCL 25 MG TABLET PO SCH ×3 (07:49→21:07)
[2020-06-17] MEDS: AmLODIPine BESYLATE 5 MG TABLET PO SCH ×2 (07:49→21:07)
[2020-06-17] MEDS: CARVEDILOL 12.5 MG TABLET PO SCH ×2 (07:50→21:07)
[2020-06-17] MEDS: OXYGEN THERAPY IH SCH ×2 (07:51→21:12)
[2020-06-17] MEDS: INSULIN LISPRO 100 UNITS/ML SQ SCH ×3 (07:51→17:32)
[2020-06-17] MEDS: DOCUSATE SODIUM 250 MG CAPSULE PO SCH ×2 (07:52→21:07)
[2020-06-17] MEDS: BACITRACIN 28 GM OINTMENT TP SCH (07:52)
[2020-06-17 08:05] VITALS: BP 198/84
[2020-06-17] MEDS: ACETAMINOPHEN 325 MG TABLET PO PRN ×2 (09:26→23:49)
[2020-06-17] MEDS: LACOSAMIDE 50 MG TABLET PO SCH (09:26)
[2020-06-17 10:30] VITALS: BP 126/74
[2020-06-17 12:40] LABS: GLUCOMETER DEV NAME(LOC) 2WR.2B; GLUCOSE,POINT OF CARE 122 MG/DL (70-110)
[2020-06-17] MEDS: CALCITRIOL 0.25 MCG CAPSULE PO SCH (13:59)
[2020-06-17 15:48] VITALS: BP 135/55
[2020-06-17] MEDS ORDERED: LIDOCAINE/PF 1% 2 ML VIAL ONE (17:04)
[2020-06-17 19:08] LABS: GLUCOMETER DEV NAME(LOC) 2WR.2B; GLUCOSE,POINT OF CARE 105 MG/DL (70-110)
[2020-06-17 21:05] VITALS: BP 155/68
[2020-06-17] MEDS: MELATONIN 3 MG TABLET PO PRN (21:07)
[2020-06-17] MEDS: ATORVASTATIN CALCIUM 40 MG TABLET PO SCH (21:07)
[2020-06-17] MEDS: SENNA 187 MG TABLET PO SCH (21:07)
[2020-06-17] MEDS: INSULIN GLARGINE,HUM.REC.ANLOG 100 UNITS/ML SQ SCH (21:33)
[2020-06-17 22:08] LABS: GLUCOMETER DEV NAME(LOC) 2WR.2B; GLUCOSE,POINT OF CARE 85 MG/DL (70-110)
[2020-06-17 22:08] LABS: GLUCOMETER DEV NAME(LOC) 2WR.2B; GLUCOSE,POINT OF CARE 98 MG/DL (70-110)
[2020-06-18 00:21] VITALS: BP 124/59
[2020-06-18] MEDS: GuaiFENesin [SUGAR-FREE] 200 MG/10 ML SOLUTION UDCUP PO PRN ×2 (05:18→15:56)
[2020-06-18 06:10] LABS: GLUCOMETER DEV NAME(LOC) 2WR.2B; GLUCOSE,POINT OF CARE 122 MG/DL (70-110)
[2020-06-18] MEDS: ACETAMINOPHEN 325 MG TABLET PO PRN (06:42)
[2020-06-18] MEDS: INSULIN LISPRO 100 UNITS/ML SQ SCH ×3 (08:46→16:30)
[2020-06-18] MEDS: VITAMIN B COMP/VIT C/FOLIC ACID CAPSULE PO SCH (08:52)
[2020-06-18] MEDS: LevETIRAcetam 500 MG TABLET PO SCH (08:52)
[2020-06-18] MEDS: OMEPRAZOLE 20 MG CAPSULE PO SCH (08:52)
[2020-06-18] MEDS: HydrALAZINE HCL 25 MG TABLET PO SCH ×3 (08:52→20:38)
[2020-06-18] MEDS: LACOSAMIDE 50 MG TABLET PO SCH (08:52)
[2020-06-18] MEDS: OXYGEN THERAPY IH SCH ×2 (08:53→20:36)
[2020-06-18] MEDS: FEXOFENADINE HCL 60 MG TABLET PO SCH (08:53)
[2020-06-18] MEDS: CALCITRIOL 0.25 MCG CAPSULE PO SCH (08:53)
[2020-06-18] MEDS: BACITRACIN 28 GM OINTMENT TP SCH (08:54)
[2020-06-18] MEDS: CARVEDILOL 12.5 MG TABLET PO SCH ×2 (09:00→20:38)
[2020-06-18] MEDS: DOCUSATE SODIUM 250 MG CAPSULE PO SCH ×2 (09:00→20:38)
[2020-06-18 10:37] VITALS: BP 173/114
[2020-06-18 12:39] LABS: GLUCOMETER DEV NAME(LOC) 2WR.2B; GLUCOSE,POINT OF CARE 217 MG/DL (70-110)
[2020-06-18] MEDS ORDERED: SODIUM CHLORIDE 0.9% 1,000 ML ONE ×2 (13:25)
[2020-06-18] MEDS ORDERED: LIDOCAINE/PF 1% 2 ML VIAL IM ONE (14:05)
[2020-06-18 14:36] LABS: BASOPHILS % (AUTO) 0.6 % (0.0-2.0); EOSINOPHILS % (AUTO) 5.7 % (1.0-6.0); HEMATOCRIT 21.3 % (36-46); HEMOGLOBIN 7.1 g/dL (12.0-16.0); LYMPHOCYTES # (AUTO) 0.5 K/uL (1.0-4.8); LYMPHOCYTES % (AUTO) 7.6 % (22.0-44.0); MEAN CORPUSCULAR HEMOGLOBIN 32.5 pg (26.0-34.0); MEAN CORPUSCULAR HGB CONC 33.2 G/dL (31.0-37.0); MEAN CORPUSCULAR VOLUME 98 fL (80-100); MONOCYTES # (AUTO) 0.4 K/uL (0.1-1.0); NEUTROPHILS # (AUTO) 5.3 K/uL (1.8-7.7); NEUTROPHILS % (AUTO) 80.1 % (40.0-70.0); PLATELET COUNT (AUTO) 151 K/uL (150-450); RED BLOOD CELL COUNT(AUTO) 2.18 MIL/uL (4.00-5.20); RED CELL DISTRIBUTION WIDTH 20.2 % (11.5-14.5)
[2020-06-18 14:44] LABS: CALCIUM, TOTAL 8.3 mg/dL (8.8-10.5); CREATININE 4.04 mg/dL (0.60-1.30); POTASSIUM 4.2 mmol/L (3.5-5.1)
[2020-06-18] MEDS: AmLODIPine BESYLATE 5 MG TABLET PO SCH ×2 (17:52→20:38)
[2020-06-18] MEDS: ISOSORBIDE MONONITRATE 60 MG ER TABLET PO SCH (17:52)
[2020-06-18] MEDS: LOSARTAN POTASSIUM 50 MG TABLET PO SCH (17:52)
[2020-06-18] MEDS: EPOETIN ALFA 10,000 UNITS/ML VIAL SQ SCH (17:52)
[2020-06-18 18:18] VITALS: BP 163/65
[2020-06-18 18:18] LABS: GLUCOMETER DEV NAME(LOC) 2WR.2B; GLUCOSE,POINT OF CARE 102 MG/DL (70-110)
[2020-06-18] MEDS: SENNA 187 MG TABLET PO SCH (20:38)
[2020-06-18] MEDS: MELATONIN 3 MG TABLET PO PRN (20:38)
[2020-06-18] MEDS: ATORVASTATIN CALCIUM 40 MG TABLET PO SCH (20:38)
[2020-06-18] MEDS: INSULIN GLARGINE,HUM.REC.ANLOG 100 UNITS/ML SQ SCH (20:47)
[2020-06-18] MEDS: INSULIN LISPRO 100 UNITS/ML SQ PRN (20:48)
[2020-06-18 21:19] LABS: GLUCOMETER DEV NAME(LOC) 2WR.1C; GLUCOSE,POINT OF CARE 157 MG/DL (70-110)
[2020-06-19] VITALS: BP 131/56
[2020-06-19 06:11] LABS: GLUCOMETER DEV NAME(LOC) 2WR.1C; GLUCOSE,POINT OF CARE 85 MG/DL (70-110)
[2020-06-19] MEDS: INSULIN LISPRO 100 UNITS/ML SQ SCH ×3 (07:00→13:28)
[2020-06-19] MEDS: OXYGEN THERAPY IH SCH ×2 (07:44→21:41)
[2020-06-19] MEDS: GuaiFENesin [SUGAR-FREE] 200 MG/10 ML SOLUTION UDCUP PO PRN ×2 (07:45→23:33)
[2020-06-19] MEDS: BACITRACIN 28 GM OINTMENT TP SCH (07:46)
[2020-06-19] MEDS: DOCUSATE SODIUM 250 MG CAPSULE PO SCH ×2 (07:46→21:40)
[2020-06-19] MEDS: LevETIRAcetam 500 MG TABLET PO SCH (07:46)
[2020-06-19] MEDS: CALCITRIOL 0.25 MCG CAPSULE PO SCH (07:46)
[2020-06-19] MEDS: LACOSAMIDE 50 MG TABLET PO SCH (07:46)
[2020-06-19] MEDS: VITAMIN B COMP/VIT C/FOLIC ACID CAPSULE PO SCH (07:46)
[2020-06-19] MEDS: FEXOFENADINE HCL 60 MG TABLET PO SCH (07:46)
[2020-06-19] MEDS: OMEPRAZOLE 20 MG CAPSULE PO SCH (07:46)
[2020-06-19 08:02] VITALS: BP 173/97
[2020-06-19] MEDS: ACETAMINOPHEN 325 MG TABLET PO PRN (12:40)
[2020-06-19 12:46] LABS: GLUCOMETER DEV NAME(LOC) 2WR.2B; GLUCOSE,POINT OF CARE 150 MG/DL (70-110)
[2020-06-19] MEDS ORDERED: LIDOCAINE/PF 1% 2 ML VIAL IM ONE (14:05)
[2020-06-19] MEDS ORDERED: SODIUM CHLORIDE 0.9% 1,000 ML ONE ×2 (15:00)
[2020-06-19] MEDS: HydrALAZINE HCL 25 MG TABLET PO SCH ×3 (16:00→21:40)
[2020-06-19 16:02] LABS: GLUCOMETER DEV NAME(LOC) 2WR.1C; GLUCOSE,POINT OF CARE 145 MG/DL (70-110)
[2020-06-19] MEDS: IPRATROPIUM BROMIDE 0.5 MG/2.5 ML NEB SOLUTION NEB SCH ×3 (16:30→23:03)
[2020-06-19] MEDS: ALBUTEROL SULFATE 2.5 MG/0.5 ML NEB SOLUTION NEB SCH ×3 (16:30→23:03)
[2020-06-19 16:39] VITALS: BP 141/55
[2020-06-19] MEDS: SOD FERRIC GLUC COMPLX/SUCROSE 125 MG in SODIUM CHLORIDE 0.9% 100 ML IV SCH (16:50)
[2020-06-19] MEDS: CARVEDILOL 12.5 MG TABLET PO SCH ×2 (17:39→21:40)
[2020-06-19] MEDS: AmLODIPine BESYLATE 5 MG TABLET PO SCH ×2 (17:39→21:40)
[2020-06-19 17:45] LABS: GLUCOMETER DEV NAME(LOC) 2WR.2B; GLUCOSE,POINT OF CARE 157 MG/DL (70-110)
[2020-06-19 17:48] LABS: BASOPHILS % (AUTO) 0.4 % (0.0-2.0); EOSINOPHILS % (AUTO) 5.1 % (1.0-6.0); HEMATOCRIT 21.2 % (36-46); HEMOGLOBIN 7.1 g/dL (12.0-16.0); LYMPHOCYTES # (AUTO) 0.7 K/uL (1.0-4.8); LYMPHOCYTES % (AUTO) 10.3 % (22.0-44.0); MEAN CORPUSCULAR HEMOGLOBIN 32.6 pg (26.0-34.0); MEAN CORPUSCULAR HGB CONC 33.2 G/dL (31.0-37.0); MEAN CORPUSCULAR VOLUME 98 fL (80-100); MONOCYTES # (AUTO) 0.5 K/uL (0.1-1.0); MONOCYTES % (AUTO) 7.7 % (2.0-9.0); NEUTROPHILS # (AUTO) 5.4 K/uL (1.8-7.7); NEUTROPHILS % (AUTO) 76.5 % (40.0-70.0); PLATELET COUNT (AUTO) 151 K/uL (150-450); RED BLOOD CELL COUNT(AUTO) 2.16 MIL/uL (4.00-5.20); RED CELL DISTRIBUTION WIDTH 20.5 % (11.5-14.5)
[2020-06-19] MEDS: ISOSORBIDE MONONITRATE 60 MG ER TABLET PO SCH (21:40)
[2020-06-19] MEDS: SENNA 187 MG TABLET PO SCH (21:40)
[2020-06-19] MEDS: ATORVASTATIN CALCIUM 40 MG TABLET PO SCH (21:40)
[2020-06-19] MEDS: LOSARTAN POTASSIUM 50 MG TABLET PO SCH (21:40)
[2020-06-19] MEDS: MELATONIN 3 MG TABLET PO PRN (21:41)
[2020-06-19] MEDS: INSULIN GLARGINE,HUM.REC.ANLOG 100 UNITS/ML SQ SCH (22:01)
[2020-06-19 22:35] LABS: GLUCOMETER DEV NAME(LOC) 2WR.1C; GLUCOSE,POINT OF CARE 119 MG/DL (70-110)
[2020-06-19] MEDS ORDERED: LACO50TA2 PO (22:48)
[2020-06-19] MEDS ORDERED: ISOS60TA4 PO (22:48)
[2020-06-20] VITALS: BP 135/59
[2020-06-20] MEDS ORDERED: DOCU-350 PO (04:07)
[2020-06-20] MEDS ORDERED: CALC0.25 PO (04:07)
[2020-06-20] MEDS ORDERED: LEVE500T53 PO (04:11)
[2020-06-20] MEDS ORDERED: INSU100V SQ (04:17)
[2020-06-20] MEDS: ALBUTEROL SULFATE 2.5 MG/0.5 ML NEB SOLUTION NEB SCH ×2 (05:06→09:39)
[2020-06-20] MEDS: IPRATROPIUM BROMIDE 0.5 MG/2.5 ML NEB SOLUTION NEB SCH ×2 (05:07→09:39)
[2020-06-20] MEDS: INSULIN LISPRO 100 UNITS/ML SQ SCH ×2 (08:13→12:41)
[2020-06-20] MEDS: OXYGEN THERAPY IH SCH (08:15)
[2020-06-20] MEDS: VITAMIN B COMP/VIT C/FOLIC ACID CAPSULE PO SCH (08:19)
[2020-06-20] MEDS: OMEPRAZOLE 20 MG CAPSULE PO SCH (08:30)
[2020-06-20] MEDS: LOSARTAN POTASSIUM 50 MG TABLET PO SCH (08:30)
[2020-06-20] MEDS: LevETIRAcetam 500 MG TABLET PO SCH (08:30)
[2020-06-20] MEDS: FEXOFENADINE HCL 60 MG TABLET PO SCH (08:30)
[2020-06-20] MEDS: HydrALAZINE HCL 25 MG TABLET PO SCH (08:31)
[2020-06-20] MEDS: CARVEDILOL 12.5 MG TABLET PO SCH (08:31)
[2020-06-20] MEDS: ISOSORBIDE MONONITRATE 60 MG ER TABLET PO SCH (08:31)
[2020-06-20] MEDS: LACOSAMIDE 50 MG TABLET PO SCH (08:31)
[2020-06-20] MEDS: AmLODIPine BESYLATE 5 MG TABLET PO SCH (08:31)
[2020-06-20] MEDS: BACITRACIN 28 GM OINTMENT TP SCH (08:32)
[2020-06-20] MEDS: DOCUSATE SODIUM 250 MG CAPSULE PO SCH (08:32)
[2020-06-20 08:39] VITALS: BP 159/86
[2020-06-20] MEDS: ACETAMINOPHEN 325 MG TABLET PO PRN (08:39)
[2020-06-20] MEDS ORDERED: EPOETIN ALFA 10,000 UNITS/ML 2 ML VIAL SQ SCH (09:00)
[2020-06-20 12:14] LABS: GLUCOMETER DEV NAME(LOC) 2WR.1C; GLUCOSE,POINT OF CARE 95 MG/DL (70-110)
[2020-06-20] MEDS: INSULIN LISPRO 100 UNITS/ML SQ PRN (12:43)
[2020-06-20 15:05] LABS: GLUCOMETER DEV NAME(LOC) 2WR.1C; GLUCOSE,POINT OF CARE 179 MG/DL (70-110)
== END 2020-06-20 14:06 | disposition home health service (06) | DRG 85 ==
LOC: 2WR 12:20
PROVIDERS: ADMIT Physical Medicine & Rehabilitation; ATTEND Physical Medicine & Rehabilitation
DX: S06.5X0A Traumatic subdural hemorrhage without loss of consciousness, initial encounter (principal); N18.6 End stage renal disease; S42.302A Unspecified fracture of shaft of humerus, left arm, initial encounter for closed fracture; Z99.2 Dependence on renal dialysis; I10 Essential (primary) hypertension; I48.91 Unspecified atrial fibrillation; K21.9 Gastro-esophageal reflux disease without esophagitis; E11.22 Type 2 diabetes mellitus with diabetic chronic kidney disease; G47.33 Obstructive sleep apnea (adult) (pediatric); E04.2 Nontoxic multinodular goiter; D64.9 Anemia, unspecified; R26.2 Difficulty in walking, not elsewhere classified
CPT/HCPCS: 82271; 83735; 83970; 84100; 86850; 86900; 86901; 86923; 87081; 87340; 87426; 92507; 92508; 92523; 93005; 94640; 94660; 97110; 97112; 97116; 97150; 97163; 97166; 97530; 97535; 99366; J0885; J1815; J2916; J3490; J7030; J7050; P9016; Q0162; 36415-L1; 36415-TC; 71045-TC; 71046; 71046-TC; J7613